=== PATIENT | male | born 1970 | race Caucasian/White ===

== ENCOUNTER 2016-07-10 11:56 | Emergency (ER) | payer OTHER ==
[~2016-07-10] VITALS: Ht 172.7 cm; Wt 81.6 kg
[~2016-07-10 11:56] MED LIST: ASPI81TA2 PO; CARV6.25 PO; FLUT1DIS3 INH; LEVO500T15 PO; SIMV20TA2 PO
[2016-07-10] MEDS ORDERED: ALPR0.25 PO (12:39)
[2016-07-10 13:10] LABS: POTASSIUM 4.1 mmol/L (3.5-5.1)
[2016-07-10 13:18] LABS: TROPONIN I 0.036 ng/mL (0.00-0.056)
[2016-07-10 13:34] VITALS: BP 148/84
[2016-07-10 13:45] LABS: INR 1.02 (0.87-1.13); PROTHROMBIN TIME 10.7 SECS (9.5-12.7)
== END 2016-07-10 13:36 | disposition left against medical advice (07) ==
LOC: ER 11:58
DX: R07.9 Chest pain, unspecified (principal); F41.9 Anxiety disorder, unspecified; F17.200 Nicotine dependence, unspecified, uncomplicated; Z79.82 Long term (current) use of aspirin
CPT/HCPCS: 36415; 71010; 80048; 84484; 85730; 87081; 93005; 99285; A4606; Z7610

== ENCOUNTER 2016-07-12 16:21 | Inpatient (IN) | payer OTHER ==
[~2016-07-12] VITALS: Ht 172.7 cm; Wt 81.6 kg
[~2016-07-12 16:21] MED LIST changes: +ALPR0.25 PO; -ASPI81TA2 PO; -CARV6.25 PO; -FLUT1DIS3 INH; -LEVO500T15 PO; -SIMV20TA2 PO
[2016-07-12] MEDS ORDERED: ASPIRIN 81 MG TAB.CHEW PO ONE (17:30)
[2016-07-12 17:38] LABS: BASOPHILS # (AUTO) 0.1 /CMM (0.0-0.2); BASOPHILS % (AUTO) 1.2 % (0.0-2.0); DIFF TOTAL % 100 %; EOSINOPHILS # (AUTO) 0.3 /CMM (0.0-0.7); EOSINOPHILS % (AUTO) 3.7 % (0.0-6.0); HEMATOCRIT 50 % (39-51); HEMOGLOBIN 17.1 g/dL (13.5-17.5); LYMPHOCYTES # (AUTO) 2.9 /CMM (0.8-4.8); LYMPHOCYTES % (AUTO) 34.8 % (20.0-44.0); MEAN CORPUSCULAR HEMOGLOBIN 33 PG (26.0-33.0); MEAN CORPUSCULAR HGB CONC 35 g/dl (31.0-36.0); MEAN CORPUSCULAR VOLUME 95 fL (80-96); MONOCYTES # (AUTO) 0.5 /CMM (0.1-1.30); MONOCYTES % (AUTO) 5.8 % (2.0-12.0); NEUTROPHILS # (AUTO) 4.4 /CMM (1.8-8.9); NEUTROPHILS % (AUTO) 54.5 % (43.0-81.0); PLATELET COUNT (AUTO) 215 /CMM (150-450); RED BLOOD CELL COUNT(AUTO) 5.23 MIL/uL (4.5-6.0); WHITE BLOOD COUNT (AUTO) 8.2 K/uL (4.3-11.0)
[2016-07-12 17:54] LABS: BILIRUBIN,DIRECT 0.1 mg/dL (0.0-0.2); BILIRUBIN,TOTAL 0.3 mg/dL (0.2-1.0); CALCIUM, SERUM 8.8 mg/dL (8.5-10.1); CREATININE 1.1 mg/dL (0.6-1.3); INDIRECT BILIRUBIN 0.2 mg/dL (0.0-1.1); INR 1.02 (0.87-1.13); POTASSIUM 3.7 mmol/L (3.5-5.1); PROTHROMBIN TIME 10.7 SECS (9.5-12.7); TOTAL PROTEIN, SERUM 7.4 g/dL (6.4-8.2)
[2016-07-12 17:56] LABS: TROPONIN I 0.24 ng/mL (0.00-0.056)
[2016-07-12] MEDS ORDERED: ASPIRIN EC 81 MG TABLET.DR PO ONE (18:09)
[2016-07-12] MEDS ORDERED: NITROGLYCERIN PACKET 1 GM PACKET ONE (18:12)
[2016-07-12] MEDS ORDERED: NITROGLYCERIN PACKET 1 GM PACKET TD ONE (18:30)
[2016-07-12] MEDS ORDERED: ZOLPIDEM TARTRATE 5 MG TABLET PO PRN (19:00)
[2016-07-12] MEDS ORDERED: MAG HYDROX/AL HYDROX/SIMETH 30 ML UDC PO PRN (19:00)
[2016-07-12] MEDS ORDERED: ACETAMINOPHEN 325 MG TABLET PO PRN (19:00)
[2016-07-12] MEDS ORDERED: Z GUARD REMEDY 2 OZ OINT TP PRN (19:00)
[2016-07-12] MEDS ORDERED: ONDANSETRON HCL/PF 4 MG/2 ML VIAL IVP PRN (19:00)
[2016-07-12] MEDS ORDERED: MAGNESIUM HYDROXIDE 30 ML UDC PO PRN (19:00)
[2016-07-12] MEDS ORDERED: ENOXAPARIN SODIUM 40 MG/0.4 ML DISP.SYRIN SQ SCH (19:00)
[2016-07-12] MEDS ORDERED: HYDROCODONE/APAP 5/325MG 1 EACH TABLET PO PRN (19:00)
[2016-07-12 20:00] VITALS: BP 114/73
[2016-07-12 20:15] VITALS: BP 114/73
[2016-07-12] MEDS: NITROGLYCERIN 30 GM TUBE TP SCH (22:13)
[2016-07-13] VITALS (7 sets, daily range): BP systolic 112–131; BP diastolic 50–92
[2016-07-13] MEDS: NITROGLYCERIN 30 GM TUBE TP SCH ×3 (05:54→21:00)
[2016-07-13 07:22] LABS: CALCIUM, SERUM 8.4 mg/dL (8.5-10.1); CREATININE 1.1 mg/dL (0.6-1.3); PHOSPHORUS 3.7 mg/dL (2.5-4.9); POTASSIUM 4.2 mmol/L (3.5-5.1)
[2016-07-13 08:42] LABS: BASOPHILS # (AUTO) 0.1 /CMM (0.0-0.2); DIFF TOTAL % 100 %; EOSINOPHILS # (AUTO) 0.3 /CMM (0.0-0.7); EOSINOPHILS % (AUTO) 4.1 % (0.0-6.0); HEMATOCRIT 47 % (39-51); HEMOGLOBIN 15.9 g/dL (13.5-17.5); LYMPHOCYTES # (AUTO) 3.3 /CMM (0.8-4.8); LYMPHOCYTES % (AUTO) 39.5 % (20.0-44.0); MEAN CORPUSCULAR HEMOGLOBIN 32 PG (26.0-33.0); MEAN CORPUSCULAR HGB CONC 34 g/dl (31.0-36.0); MEAN CORPUSCULAR VOLUME 96 fL (80-96); MONOCYTES # (AUTO) 0.8 /CMM (0.1-1.30); MONOCYTES % (AUTO) 9.4 % (2.0-12.0); NEUTROPHILS # (AUTO) 3.8 /CMM (1.8-8.9); PLATELET COUNT (AUTO) 217 /CMM (150-450); RED BLOOD CELL COUNT(AUTO) 4.93 MIL/uL (4.5-6.0); WHITE BLOOD COUNT (AUTO) 8.3 K/uL (4.3-11.0)
[2016-07-13] MEDS ORDERED: METOPROLOL TARTRATE 25 MG TABLET PO SCH (09:30)
[2016-07-13] MEDS: ASPIRIN 325 MG TABLET PO SCH (10:56)
[2016-07-13] MEDS: PANTOPRAZOLE 40 MG TABLET.DR PO SCH (10:56)
[2016-07-13] MEDS: METOPROLOL SUCCINATE 50 MG TAB.SR.24H PO SCH (11:10)
[2016-07-13] MEDS: ENOXAPARIN SODIUM 80 MG/0.8 ML DISP.SYRIN SQ SCH ×2 (11:14→21:56)
[2016-07-13] MEDS: ATORVASTATIN 40 MG TABLET PO SCH (21:57)
[2016-07-14] VITALS (8 sets, daily range): BP systolic 117–140; BP diastolic 57–84
[2016-07-14] MEDS: NITROGLYCERIN 30 GM TUBE TP SCH ×3 (05:15→21:09)
[2016-07-14] MEDS: ASPIRIN 325 MG TABLET PO SCH (08:02)
[2016-07-14] MEDS: PANTOPRAZOLE 40 MG TABLET.DR PO SCH (08:02)
[2016-07-14] MEDS: LOSARTAN POTASSIUM 50 MG TABLET PO SCH (08:03)
[2016-07-14] MEDS: ENOXAPARIN SODIUM 80 MG/0.8 ML DISP.SYRIN SQ SCH ×2 (08:03→21:10)
[2016-07-14 08:14] LABS: BASOPHILS # (AUTO) 0.1 /CMM (0.0-0.2); BASOPHILS % (AUTO) 0.5 % (0.0-2.0); DIFF TOTAL % 100 %; EOSINOPHILS # (AUTO) 0.3 /CMM (0.0-0.7); EOSINOPHILS % (AUTO) 2.6 % (0.0-6.0); HEMATOCRIT 51 % (39-51); HEMOGLOBIN 17.2 g/dL (13.5-17.5); LYMPHOCYTES # (AUTO) 2.7 /CMM (0.8-4.8); LYMPHOCYTES % (AUTO) 26.1 % (20.0-44.0); MEAN CORPUSCULAR HEMOGLOBIN 32 PG (26.0-33.0); MEAN CORPUSCULAR HGB CONC 34 g/dl (31.0-36.0); MEAN CORPUSCULAR VOLUME 95 fL (80-96); MONOCYTES # (AUTO) 0.7 /CMM (0.1-1.30); MONOCYTES % (AUTO) 6.5 % (2.0-12.0); NEUTROPHILS # (AUTO) 6.6 /CMM (1.8-8.9); NEUTROPHILS % (AUTO) 64.3 % (43.0-81.0); PLATELET COUNT (AUTO) 228 /CMM (150-450); RED BLOOD CELL COUNT(AUTO) 5.37 MIL/uL (4.5-6.0); WHITE BLOOD COUNT (AUTO) 10.2 K/uL (4.3-11.0)
[2016-07-14 09:12] LABS: POTASSIUM 4.7 mmol/L (3.5-5.1)
[2016-07-14 09:13] LABS: BILIRUBIN,TOTAL 0.3 mg/dL (0.2-1.0); CALCIUM, SERUM 9.3 mg/dL (8.5-10.1); PHOSPHORUS 3.9 mg/dL (2.5-4.9)
[2016-07-14 09:14] LABS: ALBUMIN 4.4 g/dL (3.4-5.0); TOTAL PROTEIN, SERUM 8.1 g/dL (6.4-8.2)
[2016-07-14] MEDS: METOPROLOL SUCCINATE 50 MG TAB.SR.24H PO SCH (12:57)
[2016-07-14] MEDS: ATORVASTATIN 40 MG TABLET PO SCH (21:09)
[2016-07-15] VITALS (7 sets, daily range): BP systolic 98–145; BP diastolic 59–82
[2016-07-15] MEDS: NITROGLYCERIN 30 GM TUBE TP SCH ×3 (04:54→21:56)
[2016-07-15] MEDS: ASPIRIN 325 MG TABLET PO SCH (08:25)
[2016-07-15] MEDS: PANTOPRAZOLE 40 MG TABLET.DR PO SCH (08:25)
[2016-07-15] MEDS: ENOXAPARIN SODIUM 80 MG/0.8 ML DISP.SYRIN SQ SCH ×2 (08:26→21:55)
[2016-07-15] MEDS: LOSARTAN POTASSIUM 50 MG TABLET PO SCH (08:29)
[2016-07-15] MEDS: METOPROLOL SUCCINATE 50 MG TAB.SR.24H PO SCH (12:13)
[2016-07-15] MEDS: ATORVASTATIN 40 MG TABLET PO SCH (21:55)
[2016-07-16] MEDS: NITROGLYCERIN 30 GM TUBE TP SCH ×2 (05:28→13:42)
[2016-07-16 07:15] VITALS: BP 119/74
[2016-07-16 08:00] VITALS: BP 125/82
[2016-07-16] MEDS: ASPIRIN 325 MG TABLET PO SCH (08:11)
[2016-07-16] MEDS: PANTOPRAZOLE 40 MG TABLET.DR PO SCH (08:11)
[2016-07-16] MEDS: ENOXAPARIN SODIUM 80 MG/0.8 ML DISP.SYRIN SQ SCH (08:13)
[2016-07-16] MEDS: LOSARTAN POTASSIUM 50 MG TABLET PO SCH (08:14)
[2016-07-16] MEDS: METOPROLOL SUCCINATE 50 MG TAB.SR.24H PO SCH (11:30)
[2016-07-16] MEDS ORDERED: Losartan Potassium PO (15:52)
[2016-07-16] MEDS ORDERED: HYDR-3326 PO (15:52)
[2016-07-16] MEDS ORDERED: ATOR40TA PO (15:52)
[2016-07-16] MEDS ORDERED: Nitroglycerin TP (15:52)
[2016-07-16] MEDS ORDERED: Aspirin PO (15:52)
[2016-07-16] MEDS ORDERED: ENOX80DI SQ (15:52)
[2016-07-16] MEDS ORDERED: METO50TA7 PO (15:52)
[2016-07-16 16:00] VITALS: BP 122/76
== END 2016-07-16 20:25 | disposition short-term general hospital (02) | DRG 190 ==
LOC: ER 16:24 → TELE 19:32 → MED 07-16 10:02
PROVIDERS: ADMIT Internal Medicine; ATTEND Internal Medicine
DX: I21.4 Non-ST elevation (NSTEMI) myocardial infarction (principal); I10 Essential (primary) hypertension; F41.9 Anxiety disorder, unspecified; E78.1 Pure hyperglyceridemia; F17.210 Nicotine dependence, cigarettes, uncomplicated; R00.1 Bradycardia, unspecified
CPT/HCPCS: 36415; 71010-TC; 80048-TC; 80053-TC; 80061-TC; 80076-TC; 83735-TC; 84100-TC; 84484-TC; 85025-TC; 85730-TC; 87081-TC; 93307-TC; A4606; J1650; Z7610